=== PATIENT | male | born 2000 | race Caucasian/White ===

== ENCOUNTER 2020-09-29 02:25 | Emergency (ER) | payer OTHER ==
[~2020-09-29] VITALS: Ht 188 cm; Wt 99.8 kg
[2020-09-29 02:57] LABS: BASOPHILS ABSOLUTE AUTO 0.08 K/mm3 (0.00-0.23); BASOPHILS PERCENT AUTO 0 % (0-2); EOSINOPHILS ABSOLUTE AUTO 0.52 K/mm3 (0.00-0.68); EOSINOPHILS PERCENT AUTO 3 % (0-6); Hematocrit 48.1 % (37.0-53.0); Hemoglobin 15.5 g/dL (13.5-17.5); IMMATURE GRAN ABSOLUTE AUTO 0.13 K/mm3 (0.00-0.10); IMMATURE GRAN PERCENT AUTO 1 % (0-1); LYMPHOCYTES ABSOLUTE AUTO 6.04 K/mm3 (0.84-5.20); LYMPHOCYTES PERCENT AUTO 29 % (21-46); MONOCYTES PERCENT AUTO 6 % (4-13); Mean Corpuscular HGB 29.3 pg (26.0-34.0); Mean Corpuscular HGB Conc 32.2 g/dL (31.5-36.5); Mean Corpuscular Volume 91 fL (80-100); Mean Platelet Volume 10.5 fL (9.1-12.4); NEUTROPHILS ABSOLUTE AUTO 12.93 K/mm3 (1.96-9.15); NEUTROPHILS PERCENT AUTO 62 % (41-73); Platelet Count 264 K/mm3 (150-400); RDW Coefficient Variation 12.3 % (11.7-14.2); RDW Standard Deviation 40.8 fL (35.1-46.3); Red Blood Cell Count 5.29 M/mm3 (4.30-5.90)
[2020-09-29 03:12] LABS: International Normalized Ratio 1.03; Prothrombin Time Results 11.1 Sec (9.7-11.5)
[2020-09-29 03:18] LABS: Alanine Aminotransfer (ALT/SGP 46 U/L (12-78); Albumin, Blood 4.3 g/dL (3.4-5.0); Albumin/Globulin Ratio 1.3 (0.8-1.8); Alk Phos 81 U/L (50-136); Anion Gap 6 mmol/L (6-16); Aspartate Aminotrans (AST/SGOT 42 U/L (12-37); Beta HCG, Quantitative, Serum <1 mIU/mL (0-1); Blood Urea Nitrogen 14 mg/dL (8-24); Bun/Creatinine Ratio 16.9 (12.0-20.0); CO2, Blood 27 mmol/L (21-32); Chloride, Blood 106 mmol/L (98-108); Creatinine, Blood 0.83 mg/dL (0.60-1.20); Ethanol (Alcohol), Blood, Med 29 mg/dL; Globulin, Blood 3.3 g/dL (2.2-4.0); Glomerular Filtration Rate >60 (60-); Glucose, Blood 135 mg/dL (70-99); Potassium, Blood 2.9 mmol/L (3.5-5.5); Sodium, Blood 139 mmol/L (136-145); Total Protein, Blood 7.6 g/dL (6.4-8.2)
[2020-09-29 04:03] LABS: Source, Urine Catheter
[2020-09-29 04:07] LABS: Bilirubin, Urine Neg (Neg); Blood, Urine 4+ (Neg); Glucose Qualitative, Urine Neg (Neg); Ketones, Urine Neg (Neg); Leukocyte Esterase, Urine Neg (Neg); Nitrite, Urine Neg (Neg); Protein, Urine 1+ (Neg); Specific Gravity, Urine 1.015 (1.003-1.022); Urobilinogen, Urine NORM (Normal)
[2020-09-29 04:08] LABS: Appearance, Urine Clear (Clear); Color, Urine Yellow (P-Yellow)
[2020-09-29 04:14] LABS: Bacteria Not Seen /hpf; Squamous Epithelial Cells Not Seen /hpf (Few); White Blood Cells, Urine Not Seen /hpf (0-5)
[2020-09-29 04:19] LABS: PCO2 Arterial 33.7 mmHg (35-45); PO2 Arterial 173 mmHg (80-100); pH Blood Arterial 7.37 (7.35-7.45)
== END 2020-09-29 04:30 | disposition short-term general hospital (02) ==
LOC: ER 02:25 → EDBD 02:25 → ER 04:30
PROVIDERS: Emergency Medicine
DX: S06.6X9A Traumatic subarachnoid hemorrhage with loss of consciousness of unspecified duration, initial encounter (principal); S01.111A Laceration without foreign body of right eyelid and periocular area, initial encounter; S51.819A Laceration without foreign body of unspecified forearm, initial encounter; S27.892A Contusion of other specified intrathoracic organs, initial encounter; V49.50XA Passenger injured in collision with unspecified motor vehicles in traffic accident, initial encounter; Y92.410 Unspecified street and highway as the place of occurrence of the external cause
CPT/HCPCS: 36600; 51702; 70450; 70486; 70496; 70498; 71045; 71260; 71275; 72125; 74174; 74177; 80053; 81001; 82803; 83690; 84702; 85025; 85610; 86850; 86900; 86901; 94002; 96374-59; 99285-25; G0480; J0690; J1953; J2250; J2704; J3010; J7050; Q9967